=== PATIENT | female | born 1935 | race Caucasian/White ===

== ENCOUNTER 2021-03-10 18:29 | Emergency (ER) | payer MEDICARE, SELFPAY ==
--- NOTE | ~2021-03-10 | CT_ITS ---
EXAMINATION: CT cervical spine wo con DATE: 03/10/2021 23:08 INDICATION: Head injury post fall TECHNIQUE: Computed tomography (CT) of the cervical spine was performed without intravenous contrast. Automated exposure control and iterative reconstruction technique were employed. The dose-length pro duct was 293.43 mGy-cm. COMPARISON: 07/28/2013 FINDINGS: Severe osteoarthritis at the atlantoaxial articulation with surrounding calcified pannus. Unchanged 3 mm anterolisthesis C3 on C4, 2 mm retrolisthesis C5 on C6 and 2 mm anterolisthesis C7 on T1. Vertebr al body heights are normal. No acute fracture. No appreciable interval change in severe cervical spon dylosis as previously detailed. See prior report for level by level description. Atherosclerotic calc ifications at the bilateral carotid bulbs. Cervical soft tissues are otherwise unremarkable. IMPRESSION: 1. No interval change in severe cervical spondylosis. No acute osseous abnormality. Reviewed, dictated and finalized at location A. IMPRESSION: 1. No interval change in severe cervical spondylosis. No acute osseous abnormal ity.
--- NOTE | ~2021-03-10 | CT_ITS ---
EXAMINATION: CT lumbar spine wo con DATE: 03/10/2021 23:09 INDICATION: Low back pain post fall TECHNIQUE: Computed tomography (CT) of the lumbar spine was performed without intravenous contrast. A utomated exposure control and iterative reconstruction technique were employed. The dose-length produ ct was 914.95 mGy-cm. COMPARISON: Lumbar spine radiographs dated 03/25/2009 FINDINGS: Transitional thoracolumbar and lumbosacral segments with no left-sided rib and with hypoplastic rible t at the right side of foot for purposes of this report will be designated T12 and with left sided sa cralization of L5. S-shaped thoracolumbar scoliosis with 50 degrees levoscoliosis between L2 and L5 a nd 40 degree dextroscoliosis between T10 and L2. No spondylolisthesis on the sagittal images. Severe disc height loss at the left side of T12-L1 and L1-L2, on the right side of L2-L3, L3-L4 and L4-L5 an d diffusely at L5-S1. There is secondary endplate remodeling resulting in mild left anterior vertebra l body height loss at T12 and L1. Vertebral body heights are otherwise normal. No acute fracture. 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 Multiple diverticul a along the sigmoid colon without adjacent inflammatory change to suggest diverticulitis. The followi ng disc levels are specifically discussed: T11-T12: Disc is minimally bulging. There is mild right and moderate left facet joint osteoarthritis. There is mild left neural foraminal stenosis. There is no central canal stenosis. T12-L1: Disc is bulging. There is moderate bilateral facet joint osteoarthritis. There is moderate le ft neural foraminal stenosis. There is mild central canal stenosis. L1-L2: Posterior disc osteophyte complex. There is severe bilateral facet joint osteoarthritis. There is no neural foraminal stenosis. There is mild central canal stenosis. L2-L3: Disc is mildly bulging. There is moderate left and severe right facet joint osteoarthritis. Th ere is moderate right neural foraminal stenosis. There is mild central canal stenosis. L3-L4: Disc is bulging. There is mild left and severe right facet joint osteoarthritis. There is mild left and moderate right neural foraminal stenosis. There is mild central canal stenosis. L4-L5: Disc is bulging. There is moderate left and severe right facet joint osteoarthritis. There is moderate bilateral neural foraminal stenosis. There is moderate to severe central canal stenosis. L5-S1: Disc is mildly bulging. There is moderate right and severe left facet joint osteoarthritis. Th ere is moderate left and mild to moderate right neural foraminal stenosis. There is mild central lorraine l stenosis. IMPRESSION: 1. Moderate S-shaped thoracolumbar scoliosis with severe spondylosis. No acute osseous abnormality. Reviewed, dictated and finalized at location A.
--- NOTE | ~2021-03-10 | CT_ITS ---
EXAMINATION: CT brain wo con DATE: 03/10/2021 23:08 INDICATION: Head injury post fall TECHNIQUE: Computed tomography (CT) of the head was performed without intravenous contrast. Sagittal and coronal reconstructions were performed. The mA was adjusted according to patient size. Iterative reconstruction technique was employed. The dose-length product was 605.33 mGy-cm. COMPARISON: head CT dated 07/28/2013 FINDINGS: No fracture. No acute intracranial hemorrhage or abnormal extra-axial fluid collections. 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 Regions of enceph alomalacia in the anterior temporal lobes, right greater than left and smaller focus of encephalomala toby in the right parietal lobe also consistent with old infarcts. There is prominent scattered white matter hypoattenuation consistent with chronic small vessel ischemic disease. Ex vacuo dilation of t he frontal horn of the left lateral ventricle and temporal horn of the right lateral ventricle. No ma ss/mass effect. Changes of left intraocular lens replacement. Interval healing of a prior fracture in volving the inferior wall of the right orbit. Mastoid air cells and middle ear cavities are clear. In tracranial calcified cerebral atherosclerosis is noted. IMPRESSION: 1. No acute fracture or acute intracranial process. 2. Areas of encephalomalacia consistent with chronic infarcts involving the bilateral temporal lobes, right parietal lobe, left basal ganglia and left thalamus. 3. Prominent scattered White matter hypoattenuation consistent with chronic small vessel ischemic dis ease. Reviewed, dictated and finalized at location A. IMPRESSION: 1. No acute fracture or acute intracranial process. 2. Areas of encephalomalacia consistent with chronic infarcts involving the gael ateral temporal lobes, right parietal lobe, left basal ganglia and left thalamu s. 3. Prominent scattered White matter hypoattenuation consistent with chronic sma ll vessel ischemic disease.
[2021-03-10 18:36] VITALS: BP 151/90; PULSE 82; RESP 20; TEMP 36.7; O2SAT 98
[2021-03-10 21:28] VITALS: BP 172/71; PULSE 69; RESP 18; O2SAT 97
--- NOTE | 2021-03-10 22:26 | ED.FALL ---
HPI - Fall General Chief Complaint: Fall Stated Complaint: Fall Time Seen by Provider: 03/10/21 21:56 Source: patient Mode of arrival: ambulatory Limitations: no limitations History of Present Illness HPI Narrative: Patient is an 85-year-old female complaining of low back pain, moderate, dull, worse with movement and palpation, after she fell at the [facility]. Patient states that she did hit her head on the floor and also having some mild neck pain. Patient states that she has balance issues and just falls at times. Patient states that she was asymptomatic prior to the fall. Patient denies any loss of consciousness. Denies any chest, abdomen, hip, pelvis or any extremity pain/injury. Related Data Home Medications Medication Instructions Recorded Confirmed brimonidine 0.2 % eye drops 1 drop EACH EYE Q8H 05/02/19 03/02/21 docusate sodium 100 mg capsule 100 mg PO BID 05/02/19 03/02/21 latanoprost 0.005 % eye drops 1 drop EACH EYE DAILY 05/02/19 03/02/21 loperamide 2 mg tablet 2 mg PO Q4H PRN 05/02/19 03/02/21 polyethylene glycol 3350 17 17 gm PO DAILY 05/02/19 03/02/21 gram/dose oral powder cholecalciferol (vitamin D3) 25 2,000 unit PO DAILY cap 07/08/19 03/02/21 mcg (1,000 unit) capsule calcium polycarbophil 625 mg tablet 1,250 mg PO DAILY 08/30/19 03/02/21 nystatin 100,000 unit/gram topical 1 applic TOPICAL BID 08/30/19 03/02/21 powder Allergies Allergy/AdvReac Type Severity Reaction Status Date / Time raloxifene Allergy Unknown Asthma Verified 03/02/21 09:57 Review of Systems Review of Systems: All systems reviewed & are unremarkable except as noted in HPI and below Constitutional: Constitutional: Denies body ache(s), Denies chills, Denies excessive sweating, Denies fatigue, Denies fever(s), Denies headache(s), Denies lethargy, Denies malaise, Denies weakness and Denies weight loss Eyes: Eyes: Denies blurry vision, Denies change in vision and Denies loss of vision ENT: Denies dizziness, Denies ear discharge, Denies headache(s), Denies lip swelling, Denies epistaxis, Denies nasal congestion, Denies throat swelling and Denies tongue swelling Cardiovascular: Cardiovascular: Denies chest pain, Denies chest pain at rest, Denies chest pain with activity, Denies diaphoresis, Denies rapid heart rate, Denies edema, Denies irregular heart rhythm, Denies lightheadedness, Denies palpitations, Denies dyspnea and Denies dyspnea on exertion Respiratory: Respiratory: Denies chest congestion, Denies cough, Denies hemoptysis, Denies dyspnea and Denies dyspnea on exertion Gastrointestinal: Gastrointestinal: Denies abdominal pain, Denies melena, Denies hematochezia, Denies diarrhea, Denies nausea, Denies vomiting and Denies hematemesis Musculoskeletal: Musculoskeletal: Denies abnormal gait, Denies deformity, Denies joint swelling, Denies limited range of motion and Denies numbness Neurologic: Denies Abnormal speech present, Denies abnormal gait, Denies confusion, Denies dizziness, Denies headache(s), Denies focal weakness, Denies loss of vision, Denies numbness, Denies Other visual disturbances, Denies Sensory deficit (Neuro) and Denies weakness Psychiatric: Psychiatric: Denies confusion, Denies depression, Denies auditory hallucinations, Denies homicidal ideation and Denies suicidal ideation Endocrine: Endocrine: Denies cold intolerance, Denies excessive sweating, Denies fatigue, Denies heat intolerance and Denies palpitations Hematologic/Lymphatic: Hematologic/Lymphatic: Denies easy bleeding and Denies easy bruising Allergic/Immunologic: Allergic/Immunologic: Denies lip swelling, Denies throat swelling and Denies tongue swelling [facility] Surgical History Surgical History H/O arthroscopy of shoulder H/O: hysterectomy (~2002) History of left knee replacement (~1990) History of total right knee replacement (~2002) Hx of cholecystectomy (~1981) Family History Family History (Revi
[2021-03-10 23:08] VITALS: BP 158/82; PULSE 63; RESP 18; O2SAT 97
[2021-03-11 01:18] VITALS: BP 126/78; PULSE 68; RESP 18; O2SAT 100
== END 2021-03-11 01:19 ==
PROVIDERS: Emergency Provider Emergency Medicine; PCP Family Medicine
DX: S39.012A Strain of muscle, fascia and tendon of lower back, initial encounter (principal); S16.1XXA Strain of muscle, fascia and tendon at neck level, initial encounter; S09.90XA Unspecified injury of head, initial encounter; Z96.653 Presence of artificial knee joint, bilateral; W18.39XA Other fall on same level, initial encounter
CPT/HCPCS: 70450; 72125; 72131; 99284

== ENCOUNTER 2022-12-28 23:09 | Inpatient (IN) | payer MEDICARE, SELFPAY ==
--- NOTE | ~2022-12-28 | XR_ITS ---
Portable chest x-ray Comparison: 04/09/2008 Clinical History: Altered mental status Findings: Lungs are clear, without focal consolidation or pleural effusion. Cardiomediastinal silho uette is stable. Left shoulder arthroplasty noted. Impression: Clear lungs. Reviewed, dictated and finalized at location . Impression: Clear lungs.
--- NOTE | ~2022-12-28 | CT_ITS ---
CT head without contrast Indication: Altered mental status COMPARISON: 03/10/2021 Technique: Serial scans were obtained through the brain without the administration of contrast. Dose reduction technique was used on this scan by utilizing automated exposure control and iterative recon struction technique. The dose-length product (DLP) was 605.33 mGy-cm. Findings: There is no evidence of intracranial hemorrhage, mass lesion, or acute infarct. Chronic lac unar infarct noted in the left basal ganglia. Additional probable chronic infarct of the anterior rig ht temporal lobe. The ventricles and subarachnoid spaces are dilated, consistent with mild to moderat e atrophy. Low attenuation regions are seen within the periventricular white matter bilaterally, lik destiney representing changes from chronic microvascular ischemic disease. There is no evidence of edema, mass effect or midline shift. The visualized paranasal sinuses and mastoid air cells are clear. Impression: No intracranial hemorrhage, mass, or acute infarct. Chronic infarcts, as detailed above, stable from prior exam. Atrophy and chronic white matter changes, as above. Reviewed, dictated and finalized at location . Impression: No intracranial hemorrhage, mass, or acute infarct. Chronic infarcts, as detailed above, stable from prior exam. Atrophy and chronic white matter changes, as above.
--- NOTE | ~2022-12-28 | XR_ITS ---
AP view of the pelvis Clinical history: Pain Findings: No acute fracture or dislocation is seen. Osseous alignment is anatomic. Bilateral hip join ts are intact. There is mild degenerative change of bilateral SI joints. Degenerative change and scol iosis are partially imaged at the lower lumbar spine.. Impression: Degenerative change of the SI joints and lower lumbar spine, as noted above. No acute fracture or dislocation seen. Reviewed, dictated and finalized at location M. Impression: Degenerative change of the SI joints and lower lumbar spine, as noted above. No acute fracture or dislocation seen.
--- NOTE | ~2022-12-28 | CT_ITS ---
CT of the Abdomen and Pelvis: Indication: Abdominal pain Technique: 2.5 mm axial scans were obtained through the abdomen and pelvis following intravenous adm inistration of 100 cc of Omnipaque 350. Dose reduction technique was used on this scan by utilizing a utomated exposure control and iterative reconstruction technique. The dose-length product (DLP) was 8 81.80 mGy-cm. COMPARISON: 08/20/2004 Findings: Scans through the lung bases are unremarkable. Common bile duct dilatation is mild central intrahepatic biliary dilatation may be related to prior c holecystectomy. No hepatic parenchymal abnormality seen. The spleen, pancreas, gallbladder, adrenals and kidneys are within normal limits. There are extensive atherosclerotic calcifications of the aorta . No lymphadenopathy. There is prominent stool at the rectum. No bowel obstruction. There is sigmoid diverticulosis. No abs cess or free air. Images through the pelvis were performed. Urinary bladder unremarkable. Patient appears to be post hy sterectomy. No pelvic mass seen. No ascites. Impression: Suspected fecal impaction/constipation. Intrahepatic and extrahepatic biliary dilatation are similar to prior exam, and therefore likely rela benedicto to prior cholecystectomy. Correlate clinically. Reviewed, dictated and finalized at [facility]. Impression: Suspected fecal impaction/constipation. Intrahepatic and extrahepatic biliary dilatation are similar to prior exam, and therefore likely related to prior cholecystectomy. Correlate clinically.
[2022-12-28 23:09] VITALS: BP 137/62; PULSE 55; RESP 13; TEMP 36.4; O2SAT 99
[2022-12-29] VITALS (8 sets, daily range): BP systolic 115–192; BP diastolic 48–92; PULSE 54–72; RESP 13–18; TEMP 35.5–36.8; O2SAT 93–100
--- NOTE | 2022-12-29 00:30 | ECG_ITS ---
Measurements Intervals [place] Rate: 54 P: 13 DE: 222 QRS: -1 QRSD: 81 T: 6 QT: 434 QTc: 412 Interpretive Statements SINUS BRADYCARDIA WITH FIRST DEGREE AV BLOCK ATRIAL PREMATURE COMPLEX LOW QRS VOLTAGE- DIFFUSE LEADS ANTEROSEPTAL INFARCT, AGE INDETERMINATE CONSIDER INFERIOR INFARCT, AGE INDETERMINATE ABNORMAL ECG NO PREVIOUS ECG AVAILABLE FOR COMPARISON Electronically Signed On 12-29-2022 6:08:03 CDT by Deepak Wren D.O.
[2022-12-29 02:01] LABS: Basophils Absolute Auto 0.1 K/mm3 (0.0-0.1); Basophils Percent Auto 0.9 % (0.2-1.2); Eosinophils Absolute Auto 0.6 K/mm3 (0-0.3); Eosinophils Percent Auto 8.6 % (0-4.4); Hematocrit 39.1 % (37.0-47.0); Hemoglobin 12.3 g/dL (12.0-15.0); Immature Granulocyte Absolute 0.01 K/mm3 (0.00-0.031); Immature Granulocyte Percent A 0.1 % (0-0.5); Immature Platelet Fraction Pct 6.1 % (0.9-11.2); Lymphocytes Absolute Auto 2.28 K/mm3 (0.9-3.2); Lymphocytes Percent Auto 33.8 % (18.3-44.2); Mean Corpuscular HGB Conc 31.5 g/dl (32-36); Mean Corpuscular Hemoglobin 28.7 pg (26-34); Mean Corpuscular Volume 91.1 fl (80-100); Mean Platelet Volume 10.8 fl (7.4-10.4); Monocytes Absolute Auto 0.4 K/mm3 (0.1-0.6); Monocytes Percent Auto 6.1 % (2.6-8.5); Neutrophils Absolute Auto 3.4 K/mm3 (1.3-6.7); Neutrophils Percent Auto 50.5 % (45.5-73.1); Platelet Count Result 182 k/mm3 (150-375); Red Blood Count 4.29 M/mm3 (4.2-5.4); Red Cell Distribution Width 13.5 % (11.5-14.5); White Blood Count 6.8 K/mm3 (4.5-10.0)
[2022-12-29 02:20] LABS: Prothrombin Time 13.8 Seconds (11.1-14.7)
[2022-12-29 02:24] LABS: Anisocytosis 1+ (NORMAL); Burr Cells 1+ (NORMAL); Ovalocytes 1+ (NORMAL); Platelet Estimate Adequate (Adequate); Schistocytes Rare (NORMAL)
[2022-12-29 02:32] LABS: NT Pro B Type Natriuretic Pept 672 pg/mL (19.9-100)
[2022-12-29] MEDS: SODIUM CHLORIDE 0.9% IV 1,000 ML 999 ML IV CONT (02:33)
[2022-12-29 02:37] LABS: Influenza A QL RT-PCR Negative (Negative); Influenza B QL RT-PCR Negative (Negative); RSV RNA, RT-PCR Negative (Negative); SARS-CoV-2 RNA PCR Negative (Negative)
[2022-12-29 02:39] LABS: Alanine Aminotransferase 23 U/L (6-35); Albumin Level 3.6 g/dL (3.5-5.1); Alkaline Phosphatase 79 U/L (38-126); Anion Gap 1 mmol/L (8-16); Aspartate Amino Transferase 34 U/L (14-36); Bilirubin,Total 0.6 mg/dL (0.2-1.3); Blood Urea Nitrogen 27 mg/dL (7-17); Carbon Dioxide 31 mmol/L (22-30); Chloride 101 mmol/L (98-107); Creatine Kinase 84 U/L (30-135); Estimated CRCL calculation 27 ml/min; Estimated Glomerular Filt Rate 47; Glucose 110 mg/dL (65-110); Lipase 101 U/L (23-300); Magnesium 2.2 mg/dL (1.6-2.3); Phosphorus 3.8 mg/dL (2.5-4.5); Potassium 4.5 mmol/L (3.4-5.0); Sodium 133 mmol/L (137-145)
[2022-12-29 02:41] LABS: Lactic Acid Reflex 1.7 mmol/L (0.7-2.0)
[2022-12-29 02:54] LABS: Amorphous Sediment Urine Present; Appearance Urine Cloudy (Clear); Bacteria Urine 4+ /hpf; Bilirubin Urine Negative (Negative); Blood Urine Negative (Negative); Color Urine Yellow (Yellow); Glucose Urine UA Negative (Negative); Ketones Urine Negative (Negative); Leukocyte Esterase Ur 3+ LEU/UL (Negative); Need Manual Microscopic Reviewed; Nitrate Urine Positive (Negative); Protein Urine Negative (Negative); RBC Urine 0-2 /hpf (0-2); Specific Grav Ur 1.019 (1.001-1.035); Squamous Epithelial Cell Urine None seen /hpf (Few); WBC Urine 51-100 /hpf
[2022-12-29 02:55] LABS: Add Urine Microscopic? YES
--- NOTE | 2022-12-29 03:00 | ED.GENADULT ---
HPI - General Adult General Chief complaint: Altered Mental Status Stated complaint: AMS Time Seen by Provider: 12/29/22 00:03 History of Present Illness HPI narrative: This is an 87-year-old female sent from the group home for being found unresponsive. the group home staff went to the room and found her sitting in her chair. They found her difficult to arouse and she was unresponsive. They then called the family and then called EMS and when EMS arrived the patient was slowly returning to her baseline mental status. By time she arrived in the emergency department she is at her normal mental status by her son who is at bedside. The patient is A&O x1 and denying any complaints. She states that she was just sleeping. Related Data Home Medications Medication Instructions Recorded Confirmed brimonidine 0.2 % eye drops 1 drop ophthalmic (eye) Q8H 05/02/19 01/04/22 docusate sodium 100 mg capsule 100 mg PO BID 05/02/19 01/04/22 (Colace) latanoprost 0.005 % eye drops 1 drop ophthalmic (eye) DAILY 05/02/19 01/04/22 polyethylene glycol 3350 17 17 gm PO DAILY 05/02/19 01/04/22 gram/dose oral powder (Miralax) cholecalciferol (vitamin D3) 25 2,000 unit PO DAILY 07/08/19 01/04/22 mcg (1,000 unit) capsule calcium polycarbophil 625 mg 1,250 mg PO DAILY 08/30/19 01/04/22 tablet (Fiber Laxative (calcium polycarbophil)) nystatin 100,000 unit/gram topical 1 applic topical BID 08/30/19 01/04/22 powder (Nystop) Allergies Allergy/AdvReac Type Severity Reaction Status Date / Time raloxifene Allergy Unknown Asthma Verified 01/04/22 11:06 [facility], [facility] Past Medical History Medical History Dementia Surgical History Surgical History H/O arthroscopy of shoulder H/O: hysterectomy (~2002) History of left knee replacement (~1990) History of total right knee replacement (~2002) Hx of cholecystectomy (~1981) Family History Family History Mother Diabetes mellitus, Onset Age: 85 Hypertension Family history of elevated blood lipids Family history of cardiovascular disease Cerebrovascular accident Carcinoma of colon, Onset Age: 70 Sibling Diabetes mellitus Family history of elevated blood lipids Family history of cardiovascular disease Father Hypertension Family history of elevated blood lipids Acute myocardial infarction, Onset Age: 59 Social History Social History Smoking status: Never smoker Second hand tobacco smoke exposure: No Alcohol intake: never Substance use: never Substance use type: does not use Occupation/Education: retired Gender identity (if verbalized by the patient): Female Exam Narrative: APPEARANCE: No apparent distress. A&O x1 Head: atraumatic. EYES: EOMI, NOSE: Atraumatic NECK: Trachea midline RESPIRATORY: No increased rate of breathing , scattered crackles, no to requirement CARDIOVASCULAR: RRR, no peripheral edema ABDOMINAL: tenderness in the suprapubic area with no guarding or rebound MUSCULOSKELETAl: No obvious deformities NEURO: Alert. Moving 4/4 extremities SKIN:: Warm, dry. Normal color PSYCHIATRIC: Normal affect Course Vital Signs Vital signs: Vital Signs Temperature 97.6 F 12/28/22 23:09 Pulse Rate 55 L 12/28/22 23:09 Respiratory Rate 13 12/28/22 23:09 Blood Pressure 137/62 12/28/22 23:09 Pulse Oximetry 99 12/28/22 23:09 Oxygen Delivery Room Air 12/28/22 23:09 Temperature 97.6 F 12/28/22 23:09 Pulse Rate 62 12/29/22 02:31 Respiratory Rate 13 12/29/22 02:31 Blood Pressure 155/91 H 12/29/22 02:31 Pulse Oximetry 100 12/29/22 02:31 Oxygen Delivery Room Air 12/28/22 23:09 Medical Decision Making [facility] Narrative Medical decision making narrative: -Presentation: 87-year-old
[2022-12-29 03:13] LABS: Thyroid Stimulating Hormone Reflex 0.469 uIU/mL (0.465-4.68)
[2022-12-29 05:55] LABS: Troponin I 0.049 ng/mL (0.000-0.034)
--- NOTE | 2022-12-29 08:07 | ADMGEN ---
This patient, Joyce Nogueira, was admitted to [facility] Surg Room 332-01. Patient/family oriented to hospital policies and general routines including ID bracelet, bed and alarms, visiting hours, pain management, procedures, bathroom and other care routines, personal items, smoking policy, room service/diet, and visiting hours. Information on how to activate the Rapid Response Team has been discussed. Patient/Family are encouraged to report perceived risks to care and to ask questions if they do not understand what they are told or what they should do.
[2022-12-29] MEDS: BISACODYL 10 MG SUPPOSITORY RECTAL (08:15)
[2022-12-29] MEDS: hydrALAZINE HCL 20 MG/ML VIAL IV PUSH (09:36)
--- NOTE | 2022-12-29 10:52 | PM.IMHP ---
H&P: HPI History of Present Illness Date/Time: 12/29/22 10:52 Chief Complaint: Altered mental status Narrative: ? This is an 87[facility] ? [facility] staff went to the room and found her sitting in her chair.? They found her difficult to arouse and she was unresponsive.? They then called the family and then called EMS and when EMS arrived the patient was slowly returning to her baseline mental status.? By time she arrived in the emergency department she is at her normal mental status. The patient is A&O x1 and denying any complaints.? She states that she was just sleeping. CT head was negative for any acute findings. Abdominal CT was negative for any acute finding other than fecal impaction. Chest x-ray unremarkable Review of Systems Review of Systems: All systems reviewed & are unremarkable except as noted in HPI and below PMFSH Past Medical History Medical History Dementia Surgical History Surgical History H/O arthroscopy of shoulder H/O: hysterectomy (~2002) History of left knee replacement (~1990) History of total right knee replacement (~2002) Hx of cholecystectomy (~1981) Family History Family History Mother Diabetes mellitus, Onset Age: 85 Hypertension Family history of elevated blood lipids Family history of cardiovascular disease Cerebrovascular accident Carcinoma of colon, Onset Age: 70 Sibling Diabetes mellitus Family history of elevated blood lipids Family history of cardiovascular disease Father Hypertension Family history of elevated blood lipids Acute myocardial infarction, Onset Age: 59 Social History Social History Smoking status: Never smoker Second hand tobacco smoke exposure: No Alcohol intake: never Substance use: never Substance use type: does not use Occupation/Education: retired Gender identity (if verbalized by the patient): Female Meds Home Medications and Allergies Home Medications Medication Instructions Recorded Confirmed Type brimonidine 0.2 % eye drops 1 drop ophthalmic (eye) Q8H 05/02/19 01/04/22 History docusate sodium 100 mg capsule 100 mg PO BID 05/02/19 01/04/22 History (Colace) famotidine 40 mg tablet 40 mg PO DAILY #90 tabs 05/02/19 01/04/22 Rx latanoprost 0.005 % eye drops 1 drop ophthalmic (eye) DAILY 05/02/19 01/04/22 History polyethylene glycol 3350 17 17 gm PO DAILY 05/02/19 01/04/22 History gram/dose oral powder (Miralax) cholecalciferol (vitamin D3) 25 2,000 unit PO DAILY 07/08/19 01/04/22 History mcg (1,000 unit) capsule calcium polycarbophil 625 mg 1,250 mg PO DAILY 08/30/19 01/04/22 History tablet (Fiber Laxative (calcium polycarbophil)) nystatin 100,000 unit/gram topical 1 applic topical BID 08/30/19 01/04/22 History powder (Nystop) clonidine HCl 0.1 mg tablet See Rx Instructions .Route 01/20/22 Rx .COMPLEX #90 tabs atorvastatin 20 mg tablet See Rx Instructions .Route 03/07/22 Rx .COMPLEX #90 tabs irbesartan 300 mg tablet See Rx Instructions .Route 08/29/22 Rx .COMPLEX #90 tabs levothyroxine 112 mcg tablet See Rx Instructions .Route 10/18/22 Rx (Euthyrox) .COMPLEX #30 tabs donepezil 10 mg tablet 10 mg PO DAILY #90 tabs 11/02/22 Rx mirtazapine 30 mg tablet (Remeron) 30 mg PO QHS #90 tabs 11/25/22 Rx hydrochlorothiazide 25 mg tablet See Rx Instructions .Route 11/29/22 Rx .COMPLEX #90 tabs Allergies Allergy/AdvReac Type Severity Reaction Status Date / Time raloxifene Allergy Unknown Asthma Verified 01/04/22 11:06 Vital Signs Vital Signs - 24 hr 12/28/22 23:09 12/29/22 02:31 12/29/22 06:09 Temperature 97.6 F 97.6 F Pulse Rate 55 L 62 61 Respiratory Rate 13 13 14 Blood Pres
[2022-12-30 04:31] VITALS: BP 120/92; PULSE 66; RESP 18; TEMP 36.6; O2SAT 95
[2022-12-30 08:28] VITALS: O2SAT 95
--- NOTE | 2022-12-30 10:39 | PM.DS ---
DS: Admitting Diagnosis Discharge Date 12/30/2022 Admitting Diagnosis UTI DS: Discharge Diagnosis Discharge Diagnosis (1) Unresponsive episode: Code(s): R40.4 - Transient alteration of awareness Status: Acute (2) Acute UTI: Code(s): N39.0 - Urinary tract infection, site not specified Status: Acute (3) Dementia: Code(s): F03.90 - Unspecified dementia, unspecified severity, without behavioral disturbance, psychotic disturbance, mood disturbance, and anxiety Status: Acute (4) Fecal impaction: Code(s): K56.41 - Fecal impaction Status: Acute DS: Summary Hospital Course Hospital Course: ?This is an 87-year-old female sent from the intermediate for being found unresponsive. ? the intermediate staff went to the room and found her sitting in her chair.? They found her difficult to arouse and she was unresponsive.? They then called the family and then called EMS and when EMS arrived the patient was slowly returning to her baseline mental status.? By time she arrived in the emergency department she is at her normal mental status. The patient is A&O x1 and denying any complaints.? She states that she was just sleeping.? CT head was negative for any acute findings.? Abdominal CT was negative for any acute finding other than fecal impaction.? Chest x-ray unremarkable. Patient was started on IV Rocephin. Fecal impaction has resolved. She is currently stable and is being discharged home. She will be discharged home with oral Macrobid Time Spent with Patient Time attestation: Total time spent providing and/or coordinating discharge services: DS: Data Data Completed and Pending Labs on day of discharge: Preliminary micro results at discharge 12/29/22 01:42 Blood Culture - Preliminary Blood 12/29/22 01:42 Blood Culture - Preliminary Blood Discharge Plan Discharge Discharging Clinician: Nacho Tay Anticipated Discharge Date/Time: 12/30/22 10:37 Patient Disposition: SNF Activity: no preference Diet: heart healthy Patient Instructions: Altered Mental Status (GEN) Stand Alone Forms: General Discharge Information Follow-up/Referrals: Florentin Scott MD [Primary Care Provider] - Discharge Medications: New nitrofurantoin macrocrystal 100 mg capsule 100 mg PO Q12H Qty: 7 5RF Rx Instructions: must administer with a meal/food Continued calcium polycarbophil [Fiber Laxative (ca polycarbo)] 625 mg tablet 1,250 mg PO DAILY nystatin [Nystop] 100,000 unit/gram powder 1 applic TOPICAL BID Rx Instructions: under bilateral breasts and abdominal folds cholecalciferol (vitamin D3) 25 mcg (1,000 unit) capsule 2,000 unit PO DAILY docusate sodium [Colace] 100 mg capsule 100 mg PO BID latanoprost 0.005 % drops 1 drop EACH EYE QPM polyethylene glycol 3350 [Miralax] 17 gram/dose powder 17 gm PO DAILY brimonidine 0.2 % drops 1 drop EACH EYE Q12H famotidine 40 mg tablet 40 mg PO DAILY Qty: 90 3RF acetaminophen [Tylenol] 325 mg Tablet 650 mg PO Q6H PRN (Reason: Pain (Scale Score 1-3)) calcium carbonate-vitamin D3 600 mg-5 mcg (200 unit) Tablet 1 tablet PO DAILY loperamide [Imodium] 2 mg Capsule 2 mg PO DIRECTED PRN (Reason: Diarrhea) Rx Instructions: administer after each loose stool until symptoms controlled; do not exceed 8 mg per 24 hrs clonidine HCl 0.1 mg tablet 0.1 mg PO DAILY atorvastatin 20 mg tablet 20 mg PO DAILY Rx Instructions: Take 1 tablet by mouth once daily mirtazapine [Remeron] 30 mg tablet 45 mg PO QHS irbesartan 300 mg tablet 300 mg PO DAILY levothyroxine [Euthyrox] 112 mcg tablet 112 mcg PO DAILY hydrochlorothiazide 25 mg tablet 25 mg PO DAILY donepezil 10 mg tablet 10 mg PO DAILY Qty: 90 1RF Date of admission: 12/29/22 18:22 Primary Care Provider: Florentin Scott Admitting P
[2022-12-30] MEDS: ACETAMINOPHEN 325 MG TABLET 650 MG PO (11:55)
[2022-12-30 13:44] VITALS: BP 138/64; PULSE 65; RESP 17; TEMP 35.9; O2SAT 100
== END 2022-12-30 15:20 | DRG 690 ==
LOC: ANHED 12-29 06:07 → ANH3MEDSUR 12-29 07:08
PROVIDERS: Admitting Provider Internal Medicine; Emergency Provider Emergency Medicine; PCP Family Medicine; Visit Provider Hospitalist
DX: N39.0 Urinary tract infection, site not specified (principal); R40.4 Transient alteration of awareness; K56.41 Fecal impaction; I10 Essential (primary) hypertension; Z96.653 Presence of artificial knee joint, bilateral; Z90.710 Acquired absence of both cervix and uterus; Z90.49 Acquired absence of other specified parts of digestive tract; F03.90 Unspecified dementia, unspecified severity, without behavioral disturbance, psychotic disturbance, mood disturbance, and anxiety; Z20.822 Contact with and (suspected) exposure to COVID-19
CPT/HCPCS: 36415; 70450; 71045; 72170; 74177; 80053; 81001; 82550; 83605; 83690; 83735; 83880; 84100; 84443; 84484; 85025; 85055; 85610; 85730; 87040; 87086; 87637; 93005; 96361; 96365; 96375; 99285; A9270; G0378; J0360; J0696; J7030; Q9967

== ENCOUNTER 2023-02-13 17:15 | Emergency (ER) | payer MEDICARE, SELFPAY ==
[2023-02-13] VITALS (19 sets, daily range): BP systolic 140–176; BP diastolic 49–98; PULSE 56–74; RESP 9–21; TEMP 36.8; O2SAT 87–99
--- NOTE | ~2023-02-13 | CT_ITS ---
EXAMINATION: CT cervical spine wo con DATE: 02/13/2023 18:51 INDICATION: Head injury. TECHNIQUE: Computed tomography (CT) of the cervical spine was performed without intravenous contrast. Automated exposure control and iterative reconstruction technique were employed. The dose-length pro duct was 292.03 mGy-cm. COMPARISON: CT cervical spine 03/10/2021 FINDINGS: There is an oblique fracture of the base of the dens. The dens demonstrates 3 mm posterior displacement relative to the C2 body. There is a nondisplaced fracture of right C1 lateral mass super ior facet. There is posterior subluxation of C1 relative to C2. There is 2 mm anterolisthesis of C3 o n C4, 2 mm retrolisthesis of C5 on C6, and 3 mm anterolisthesis of C7 on T1. There is mild chronic he ight loss of T2, T3, and T4 vertebral bodies. There is severely decreased disc height at C3-C4, mildl y decreased disc height at C4-C5, severely decreased disc height at C4-5-C6 and C6-C7. The following disc levels are specifically discussed: C2-C3: There is mild bilateral uncovertebral joint osteoarthritis. There is severe bilateral facet jacqueline int osteoarthritis. There is mild left neural foraminal stenosis. There is no central canal stenosis. C3-C4: There is severe bilateral uncovertebral joint osteoarthritis. There is severe bilateral facet joint osteoarthritis. There is mild bilateral neural foraminal stenosis. There is mild central canal stenosis. C4-C5: There is mild bilateral uncovertebral joint osteoarthritis. There is severe bilateral facet jacqueline int osteoarthritis. There is mild bilateral neural foraminal stenosis. There is mild central canal st enosis. C5-C6: There is severe bilateral uncovertebral joint osteoarthritis. There is severe bilateral facet joint osteoarthritis. There is mild bilateral neural foraminal stenosis. There is mild central canal stenosis. C6-C7: There is severe bilateral uncovertebral joint osteoarthritis. There is moderate bilateral face t joint osteoarthritis. There is mild bilateral neural foraminal stenosis. There is mild central lorraine l stenosis. C7-T1: There is no uncovertebral joint osteoarthritis. There is severe bilateral facet joint osteoart hritis. There is mild bilateral neural foraminal stenosis. There is no central canal stenosis. IMPRESSION: 1. Acute type II odontoid fracture. 2. Acute fracture of right C1 lateral mass superior facet. 3. Severe cervical spondylosis. Reviewed, dictated and finalized at location E.
--- NOTE | ~2023-02-13 | CT_ITS ---
EXAMINATION: CT brain wo con DATE: 02/13/2023 18:51 INDICATION: Head injury. Fall. TECHNIQUE: Computed tomography (CT) of the head was performed without intravenous contrast. The mA wa s adjusted according to patient size. Iterative reconstruction technique was employed. The dose-lengt h product was 605.33 mGy-cm. COMPARISON: Head CT 12/29/2022 FINDINGS: There are scattered areas of low attenuation in the cerebral white matter. There is an old infarct in right frontal lobe. There is an old infarct involving the left basal ganglia and anterior limb left internal capsule. There is an old infarct involving the right caudate nucleus and right int ernal capsule. There is old infarct involving right temporal and parietal lobes. There is no intracra nial hemorrhage, acute infarction, or abnormal intracranial mass lesion. There is an old infarct in l eft occipital lobe. There is an old infarct in left thalamus. There is ex vacuo dilatation of the lat eral ventricles. There are likely changes of left ocular lens replacement surgery. There is mild muco adelaida thickening in the ethmoid sinuses. The mastoid air cells are normal. There is left periorbital so ft tissue swelling. There is a left forehead laceration. IMPRESSION: 1. Multiple old infarcts in the brain. 2. Stable extensive nonspecific cerebral white matter disease, which likely represents chronic small vessel ischemic disease. Reviewed, dictated and finalized at location E. IMPRESSION: 1. Multiple old infarcts in the brain. 2. Stable extensive nonspecific cerebral white matter disease, which likely rep resents chronic small vessel ischemic disease.
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
[2023-02-13] MEDS: ACETAMINOPHEN 500 MG TABLET 1000 MG PO (18:58)
[2023-02-13] MEDS: TETANUS,DIPHTHERIA,AC PERTUSSIS ADULT (0.5 ML) BOOSTRIX IM (18:58)
--- NOTE | 2023-02-13 19:05 | PC.NURSE ---
Addendum entered by Maira Aguilar RN 02/13/23 19:27: This RN took report from ALICIA Hardy. Original Note: This RN assumed care of patient. This RN took patient report from ALICIA Edwards.
[2023-02-13] MEDS: fentaNYL CITRATE INJ (*CRX) 100 MCG/2 ML VIAL 50 MCG IV PUSH (20:09)
== END 2023-02-13 21:39 | disposition short-term general hospital (02) ==
PROVIDERS: Emergency Provider Emergency Medicine; PCP Family Medicine
DX: S01.81XA Laceration without foreign body of other part of head, initial encounter (principal); S01.01XA Laceration without foreign body of scalp, initial encounter; S12.110A Anterior displaced Type II dens fracture, initial encounter for closed fracture; S12.000A Unspecified displaced fracture of first cervical vertebra, initial encounter for closed fracture; M47.812 Spondylosis without myelopathy or radiculopathy, cervical region; F03.90 Unspecified dementia, unspecified severity, without behavioral disturbance, psychotic disturbance, mood disturbance, and anxiety; W05.0XXA Fall from non-moving wheelchair, initial encounter; Z23 Encounter for immunization
CPT/HCPCS: 12002; 12011; 70450; 72125; 90471; 90715; 96374; 99285; A9270; J3010